=== PATIENT | male | born 1970 | race Caucasian/White ===

== ENCOUNTER 2022-10-03 20:38 | Emergency (ER) | payer OTHER, SELFPAY ==
[2022-10-03 20:53] VITALS: BP 102/66; PULSE 105; RESP 16; TEMP 36; O2SAT 95; BMI 31.2
--- NOTE | 2022-10-03 21:26 | CRLHL7_ITS ---
For Patients: As a result of the Cures Act, medical imaging exams and procedure reports are released immediately into your electronic medical record. You may view this report before your referring provider. If you have questions, please contact your health care provider. INDICATION: Left upper chest pain TECHNIQUE: Chest and two views left ribs COMPARISON: None FINDINGS: Cardiovascular and mediastinum: Heart size and vasculature are normal in caliber and appearance. Mediastinum is within normal limits. Lungs and pleural spaces: Lungs are clear. No sign of infiltrate or mass. No sign of pleural effusion. No pneumothorax. Bones and soft tissues: Detailed oblique images of the left ribs demonstrate minimally displaced fracture of the left posterior 6th rib. IMPRESSION: Minimally displaced fracture of the left posterior 6th rib. No pneumothorax or effusion. Dictated by Becky Andrews MD @ 10/03/2022 10:27:51 PM (Electronically Signed)
[2022-10-03] MEDS: HYDROCODONE-ACETAMIN 5-325 MG 1 TAB 2 TAB PO (21:33)
[2022-10-03] MEDS: LIDOCAINE 5% PATCH 1 PATCH TRANSDERMA (21:34)
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
== END 2022-10-03 22:59 | disposition home or self-care (01) ==
PROVIDERS: Emergency Provider Family Medicine
DX: S22.39XA Fracture of one rib, unspecified side, initial encounter for closed fracture (principal); W01.198A Fall on same level from slipping, tripping and stumbling with subsequent striking against other object, initial encounter
CPT/HCPCS: 71101; 99284; A9270